=== PATIENT | male | born 1945 | race Caucasian/White ===

== ENCOUNTER 2016-07-10 10:16 | Day surgery (SDC) | payer MEDICARE, BC, OTHER ==
--- NOTE | ~2016-07-10 | EGD ---
EGD REPORT [facility] [address] [place] [address] NAME: PANCHO BEEBE : [birth year] STATUS : REG [facility]#: [id number] AGE: 70 ADM/REG DATE : 07/10/16 MR#: [id number] REPORT SERV DATE: 07/10/16 DICTATED BY: SONIA FRANCO DATE: 07/10/16 REPORT STATUS : Draft TRANSCRIBED BY: [employer] DATE: 07/10/16 [facility] Patient Name: Pancho Beebe Date of : 1945 Attending MD: SONIA FRANCO, Procedure Date No Time: 07/10/2016 Procedure: Colonoscopy Indications: High risk colon cancer surveillance: Personal history of colonic polyps Referring MD: JENNIFER MATA Medicines: Monitored Anesthesia Care Complications: No immediate complications. Estimated blood loss: None. Procedure: Pre-Anesthesia Assessment: - ASA Grade Assessment: III - A patient with severe systemic disease. After I obtained informed consent, the scope was passed under direct vision. Throughout the procedure, the patient's blood pressure, pulse, and oxygen saturations were monitored continuously. The CF [id number] was introduced through the anus with the intention of advancing to the cecum. The scope was advanced to the transverse colon before the procedure was aborted. Medications were given. The colonoscopy was performed without difficulty. The patient tolerated the procedure well. The quality of the bowel preparation was inadequate. Findings: The perianal and digital rectal examinations were normal. A large amount of semi-solid solid stool was found in the entire colon, precluding visualization. Impression: - Preparation of the colon was inadequate. - Stool in the entire examined colon. Recommendation: - Patient has a contact number available for emergencies. The signs and symptoms of potential delayed complications were discussed with the patient. Return to normal activities tomorrow. Written discharge instructions were provided to the patient. - Return to previous diet. - Continue present medications. - Repeat colonoscopy because the bowel preparation was suboptimal. EGD REPORT [facility] [address] [place] [address] [place]. [address] NAME: PANCHO BEEBE : [birth year] STATUS : REG [facility]#: [id number] AGE: 70 ADM/REG DATE : 07/10/16 MR#: [id number] REPORT SERV DATE: 07/10/16 DICTATED BY: SONIA FRANCO DATE: 07/10/16 REPORT STATUS : Draft TRANSCRIBED BY: [employer] DATE: 07/10/16 Procedure Code(s): --- Professional --- 42507, 53, Colonoscopy, flexible, proximal to splenic flexure; diagnostic, with or without collection of specimen(s) by brushing or washing, with or without colon decompression (separate procedure) Diagnosis Code(s): --- Professional --- Z86.010, Personal history of colonic polyps CPT copyright 2013 [employer]. All rights reserved. The codes documented in this report are preliminary and upon double end production grinder review may be revised to meet current compliance requirements. SONIA FRANCO, 07/10/2016 11:49 AM Number of Addenda: 0 Note Initiated On: 07/10/2016 10:31 AM Scope Withdrawal Time 0 hours 0 minutes 0 seconds [address] [facility] [place] [address]
[~2016-07-10 10:16] MED LIST: ASABAYER PO; CAT1 PO; COREG25 PO; EFFEXOR XR150 MG PO; FLOMAX4 PO; GLUCOPHAGE1000 MG PO; GLUCPH PO; MINIPRESS 1 MG C1 MG PO; MULTI-VIT HP PO; OTC STOOL SOFTENER PO; PROAIR HFA INH; REQUIP1 PO; TOPAMAX25 PO; ZOCOR40 PO
[2016-11-13] MEDS ORDERED: ASABAYER PO (20:18)
[2016-11-13] MEDS ORDERED: MULTIVIT/MIN PO (20:18)
[2016-11-13] MEDS ORDERED: VITC500 PO (20:19)
[2016-11-13] MEDS ORDERED: FISH OIL 500 MG PO (20:19)
[2016-11-13] MEDS ORDERED: TOPAMAX50 MG PO (20:20)
[2016-11-13] MEDS ORDERED: NORCO1 TAB PO (20:21)
[2016-11-13] MEDS ORDERED: ZOCOR40 PO (20:21)
[2016-11-13] MEDS ORDERED: HALF81 PO (20:22)
[2016-11-13] MEDS ORDERED: VASOTEC5 PO (20:23)
[2016-11-13] MEDS ORDERED: COREG3 PO (20:23)
[2016-11-13] MEDS ORDERED: PROSCAR5 PO (20:23)
[2016-11-13] MEDS ORDERED: V5 PO ×2 (20:24→20:25)
[2016-11-13] MEDS ORDERED: REQUIP1 PO (20:25)
[2016-11-13] MEDS ORDERED: BEN25 PO (20:26)
[2016-11-13] MEDS ORDERED: PROAIR HFA INH (20:26)
[2016-11-13] MEDS ORDERED: VITAMIN D31000 UNIT PO (20:26)
[2016-11-13] MEDS ORDERED: WELL75 PO (20:27)
[2016-11-13] MEDS ORDERED: FENTANYL PATCH (20:29)
[2016-12-14] MEDS ORDERED: ELIQUIS 5 MG TAB5 MG PO (09:26)
[2016-12-14] MEDS ORDERED: FISH-EPA1000 MG PO (09:27)
[2016-12-14] MEDS ORDERED: EX-LAX PO (09:27)
[2016-12-14] MEDS ORDERED: STOOL SOFTEN240 MG PO (09:28)
[2016-12-14] MEDS ORDERED: POTASSIUM GLUCO99 MG PO (09:28)
[2016-12-14] MEDS ORDERED: FLOMAX4 PO (09:28)
[2016-12-14] MEDS ORDERED: TOPXL25 PO (09:29)
[2016-12-14] MEDS ORDERED: TOPAMAX25 PO (09:29)
[2016-12-17] MEDS ORDERED: IRON PO (12:04)
[2017-01-10] MEDS ORDERED: FERROUS SULF325 M1 PO (11:06)
[2017-01-11] MEDS ORDERED: IMDUR30 PO (07:15)
[2017-01-11] MEDS ORDERED: LOVAZA1 GM PO (07:16)
[2017-01-11] MEDS ORDERED: VITAMIN B-625 MG PO (07:17)
[2017-01-11] MEDS ORDERED: VITAMIN B-121000 MC1 SL (07:17)
[2017-01-11] MEDS ORDERED: MELATONIN5 M1 PO (07:18)
[2017-01-11] MEDS ORDERED: CO Q-10100 MG PO (07:18)
[2017-01-11] MEDS ORDERED: COCONUT OIL (07:34)
== END 2016-07-10 23:59 | disposition home or self-care (01) ==
LOC: DMU 10:16
PROVIDERS: Internal Medicine Gastroenterology
PROC: 0DJD8ZZ Inspection of Lower Intestinal Tract, Via Natural or Artificial Opening Endoscopic (ICD-10-PCS; principal; 2016-07-10 11:00)
DX: Z12.11 Encounter for screening for malignant neoplasm of colon (principal); Z86.010 Personal history of colon polyps; I10 Essential (primary) hypertension; E78.00 Pure hypercholesterolemia, unspecified; G47.33 Obstructive sleep apnea (adult) (pediatric); E11.9 Type 2 diabetes mellitus without complications; N40.0 Benign prostatic hyperplasia without lower urinary tract symptoms
CPT/HCPCS: 82962

== ENCOUNTER 2016-08-20 07:30 | Day surgery (SDC) | payer MEDICARE, BC, OTHER ==
--- NOTE | ~2016-08-20 | EGD ---
EGD REPORT [facility] [address] [address] NAME: PANCHO BEEBE : [birth year] STATUS : REG [facility]#: [id number] AGE: 70 ADM/REG DATE : 08/20/16 MR#: [id number] REPORT SERV DATE: 08/20/16 DICTATED BY: SONIA FRANCO DATE: 08/20/16 REPORT STATUS : Draft TRANSCRIBED BY: [employer] DATE: 08/20/16 [facility] Patient Name: Pancho Beebe Date of : 1945 Attending MD: SONIA FRANCO, Procedure Date No Time: 08/20/2016 Procedure: Colonoscopy Indications: High risk colon cancer surveillance: Personal history of colonic polyps Medicines: Monitored Anesthesia Care Complications: No immediate complications. Estimated blood loss: None. Procedure: Pre-Anesthesia Assessment: - ASA Grade Assessment: III - A patient with severe systemic disease. After I obtained informed consent, the scope was passed under direct vision. Throughout the procedure, the patient's blood pressure, pulse, and oxygen saturations were monitored continuously. The CF [id number] was introduced through the anus and advanced to the cecum, identified by appendiceal orifice and ileocecal valve. The colonoscopy was performed without difficulty. The patient tolerated the procedure well. The quality of the bowel preparation was good. Findings: The perianal and digital rectal examinations were normal. Five sessile polyps were found in the transverse colon. The polyps were 2 to 3 mm in size. These polyps were removed with a cold biopsy forceps. Resection and retrieval were complete. Verification of patient identification for the specimen was done. Estimated blood loss was minimal. A few small-mouthed diverticula were found in the sigmoid colon. Internal hemorrhoids were found during retroflexion and were Grade I (internal hemorrhoids that do not prolapse). The exam was otherwise without abnormality on direct and retroflexion views. Impression: - Five 2 to 3 mm polyps in the transverse colon. Resected and retrieved. - Diverticulosis in the sigmoid colon. - Internal hemorrhoids. - The examination was otherwise normal on direct and retroflexion views. Recommendation: - Patient has a contact number available for EGD REPORT [address] [address] NAME: PANCHO BEEBE : [birth year] STATUS : REG [facility] PAT#: [id number] AGE: 70 ADM/REG DATE : 08/20/16 MR#: [id number] REPORT SERV DATE: 08/20/16 DICTATED BY: SONIA FRANCO DATE: 08/20/16 REPORT STATUS : Draft TRANSCRIBED BY: [employer] DATE: 08/20/16 emergencies. The signs and symptoms of potential delayed complications were discussed with the patient. Return to normal activities tomorrow. Written discharge instructions were provided to the patient. - Return to previous diet. - Continue present medications. - Await pathology results. - Repeat colonoscopy for surveillance based on pathology results. Procedure Code(s): --- Professional --- 16116, Colonoscopy, flexible, proximal to splenic flexure; with biopsy, single or multiple Diagnosis Code(s): --- Professional --- D12.3, Benign neoplasm of transverse colon K64.0, First degree hemorrhoids K57.30, Diverticulosis of large intestine without perforation or abscess without bleeding Z86.010, Personal history of colonic polyps CPT copyright 2013 [employer]. All rights reserved. The codes documented in this report are preliminary and upon pumper gager review may be revised to meet current compliance requirements. SONIA FRANCO, 08/20/2016 9:18 AM Number of Addenda: 0 Note Initiated On: 08/20/2016 8:58 AM Scope Withdrawal Time 0 hours 12 minutes 44 seconds
[2016-11-13] MEDS ORDERED: MULTIVIT/MIN PO (20:18)
[2016-11-13] MEDS ORDERED: ASABAYER PO (20:18)
[2016-11-13] MEDS ORDERED: VITC500 PO (20:19)
[2016-11-13] MEDS ORDERED: FISH OIL 500 MG PO (20:19)
[2016-11-13] MEDS ORDERED: TOPAMAX50 MG PO (20:20)
[2016-11-13] MEDS ORDERED: NORCO1 TAB PO (20:21)
[2016-11-13] MEDS ORDERED: ZOCOR40 PO (20:21)
[2016-11-13] MEDS ORDERED: HALF81 PO (20:22)
[2016-11-13] MEDS ORDERED: COREG3 PO (20:23)
[2016-11-13] MEDS ORDERED: VASOTEC5 PO (20:23)
[2016-11-13] MEDS ORDERED: PROSCAR5 PO (20:23)
[2016-11-13] MEDS ORDERED: V5 PO ×2 (20:24→20:25)
[2016-11-13] MEDS ORDERED: REQUIP1 PO (20:25)
[2016-11-13] MEDS ORDERED: PROAIR HFA INH (20:26)
[2016-11-13] MEDS ORDERED: VITAMIN D31000 UNIT PO (20:26)
[2016-11-13] MEDS ORDERED: BEN25 PO (20:26)
[2016-11-13] MEDS ORDERED: WELL75 PO (20:27)
[2016-11-13] MEDS ORDERED: FENTANYL PATCH (20:29)
[2016-12-14] MEDS ORDERED: ELIQUIS 5 MG TAB5 MG PO (09:26)
[2016-12-14] MEDS ORDERED: FISH-EPA1000 MG PO (09:27)
[2016-12-14] MEDS ORDERED: EX-LAX PO (09:27)
[2016-12-14] MEDS ORDERED: STOOL SOFTEN240 MG PO (09:28)
[2016-12-14] MEDS ORDERED: FLOMAX4 PO (09:28)
[2016-12-14] MEDS ORDERED: POTASSIUM GLUCO99 MG PO (09:28)
[2016-12-14] MEDS ORDERED: TOPXL25 PO (09:29)
[2016-12-14] MEDS ORDERED: TOPAMAX25 PO (09:29)
[2016-12-17] MEDS ORDERED: IRON PO (12:04)
[2017-01-10] MEDS ORDERED: FERROUS SULF325 M1 PO (11:06)
[2017-01-11] MEDS ORDERED: IMDUR30 PO (07:15)
[2017-01-11] MEDS ORDERED: LOVAZA1 GM PO (07:16)
[2017-01-11] MEDS ORDERED: VITAMIN B-121000 MC1 SL (07:17)
[2017-01-11] MEDS ORDERED: VITAMIN B-625 MG PO (07:17)
[2017-01-11] MEDS ORDERED: CO Q-10100 MG PO (07:18)
[2017-01-11] MEDS ORDERED: MELATONIN5 M1 PO (07:18)
[2017-01-11] MEDS ORDERED: COCONUT OIL (07:34)
== END 2016-08-20 23:59 | disposition home or self-care (01) ==
LOC: DMU 07:30
PROVIDERS: Internal Medicine Gastroenterology
PROC: 0DBL8ZX Excision of Transverse Colon, Via Natural or Artificial Opening Endoscopic, Diagnostic (ICD-10-PCS; principal; 2016-08-20 09:00)
DX: Z12.11 Encounter for screening for malignant neoplasm of colon (principal); D12.3 Benign neoplasm of transverse colon; K64.0 First degree hemorrhoids; K57.30 Diverticulosis of large intestine without perforation or abscess without bleeding; I10 Essential (primary) hypertension; E11.9 Type 2 diabetes mellitus without complications; F41.9 Anxiety disorder, unspecified; J44.9 Chronic obstructive pulmonary disease, unspecified; G47.33 Obstructive sleep apnea (adult) (pediatric); Z86.73 Personal history of transient ischemic attack (TIA), and cerebral infarction without residual deficits; F32.9 Major depressive disorder, single episode, unspecified; Z79.82 Long term (current) use of aspirin; Z86.010 Personal history of colon polyps; Z79.899 Other long term (current) drug therapy; Z98.49 Cataract extraction status, unspecified eye; Z98.890 Other specified postprocedural states
CPT/HCPCS: 82962; 88305

== ENCOUNTER 2016-10-16 21:18 | Inpatient (IN) | payer MEDICARE, BC, OTHER ==
--- NOTE | ~2016-10-16 | HP ---
History And Physical [facility] [id number] [place]. [address] NAME: MAYE FARIAS : [birth year] STATUS : ADM Will PAT#: [id number] AGE: 70 ADM/REG DATE : 10/16/16 MR#: [id number] REPORT SERV DATE: 10/17/16 DICTATED BY: MAGDA YEBOAH DATE: 10/16/16 REPORT STATUS : Draft TRANSCRIBED BY: MODL DATE: 10/16/16 DATE OF ADMISSION: 10/16/2016 CHIEF COMPLAINT: Syncope, low blood pressure, direct admission/transfer from outside hospital facility. HISTORY OF PRESENT ILLNESS: Obtained from the patient, the patient's family, and medical records and reports sent over with the patient from outside hospital facility. Also attached were medical records from the patient's primary care provider made available to [facility] in [place] by his primary care provider. According to the information available, the patient is a pleasant 70-year-old white man with history of hypertension; diabetes type 2, not using insulin; hypercholesterolemia; chronic lower back pain; anxiety/posttraumatic stress disorder, who has been evaluated routinely today by his primary care provider. The patient comes to his primary care provider in [place], [place], Dr. Ion Roa, for followup and refill of his chronic lower back pain medication. The patient was noticed today to have low blood pressure with systolic blood pressure 78/55. Even though the patient was not quite symptomatic, he complains of being weak and standing up becomes lightheaded and dizzy. In retrospect, the patient has told his primary care provider that he is having episodes of lightheadedness, stumbling, and falling, "near passing out" that has been going on for the last several months. Because of the above findings with blood pressure being quite significantly low, the patient was referred to [facility] in [place], [place]. The patient has arrived there by private vehicle in the afternoon on 10/16/2016. Upon initial evaluation, the patient was noticed to still be hypotensive with systolic blood pressure 85/55, pulse 69 with no other complaints besides the above mentioned symptoms. The patient received IV bolus normal saline with improvement of his symptoms and blood pressure. At the time of his transfer to our medical center from [facility], the patient's blood pressure was 129/74. Further investigation at [facility] emergency room department revealed creatinine of 1.72 (normal less than 1.24), and because of these above symptoms and findings, the patient was referred to our Hospitalist Service as a direct admission for further management and evaluation. Other tests including CT scan of the head/brain, chest x-ray, EKG were unrevealing and overall benign/within normal limits. Upon arrival at [facility], the patient is an asymptomatic, lying comfortably in bed. Denies chest pain. Denies palpitations. Denies diaphoresis. Denies headaches. Denies neck pain or neck stiffness. His only complaint relates to his chronic lower back pain, for which he takes his Lortab and complaining of being hungry. In reviewing his medication list with the patient, looks like some of the medications have been prescribed several times a day with increased dose, the patient being unaware of exactly timing of taking the medications or dosages. For example, the patient has prescribed Effexor XR twice a day, which he has been taking twice a day for a couple months now as prescribed; Valium 5 mg three times a day; prazosin 1 mg to take one or two capsules by mouth q.h.s.? The patient states that he has been evaluated in [place], where he used to live over the last 50 years by his tumbler machine operator helper and had significant testing done at that time. PAST MEDICAL HISTORY: Significant for hypertension, significant for reportedly atrial History And Physical [address] [address] NAME: MAYE FARIAS : 41 STATUS : ADM Will PAT#: [id number] AGE: 70 ADM/REG DATE : 10/16/16 MR#: [id number] REPORT SERV DATE: 10/17/16 DICTATED BY: MAGDA YEBOAH DATE: 10/16/16 REPORT STATUS : Draft TRANSCRIBED BY: CADEN DATE: 10/16/16 fibrillation, the patient states that his tumbler machine operator helper in [place] has done several tests and he was on "some medications" in the past, but was taken out and presently, he is only on aspirin 325 mg daily for atrial fibrillation as per the patient; history of diabetes type 2, not insulin dependent, using metformin with relatively well controlled according to testing available from his primary care provider; history of prior vertigo "inner ear" as per patient; history of migraine headaches, for which he takes Topamax; history of colon polyps just recently removed by Dr. Gant, GI specialist; history of depression and anxiety and posttraumatic stress disorder; history of restless leg syndrome; history of chronic lower back pain syndrome with degenerative disk disease; history of reported BPH; history of high cholesterol; dyslipidemia; history of reported CVA with prior TIAs; history of asthma. PAST SURGICAL HISTORY: Significant for back surgery, lower back x4 as per patient; bilateral cataract surgeries, several colonoscopies; and "stomach stapling" in 1973. ALLERGIES: NO KNOWN DRUG ALLERGIES. MEDICATIONS AT HOME: According to the list provided by his primary care provider, the patient is supposed to take Coreg 25 mg p.o. b.i.d.; Lortab 10 mg/325 one p.o. q.i.d. p.r.n. pain; metformin 500 mg p.o. tablet, the patient takes one tablet in the morning with breakfast and two tablets in the evening with dinner; Mobic 7.5 mg p.o. daily; prazosin 1 mg capsule take one to two capsules by mouth q.h.s. (?); ProAir HFA MDI two puffs q.4 hours p.r.n. shortness of breath; Requip 0.5 mg p.o. t.i.d. (?); Zocor 40 mg p.o. q.h.s.; Flomax extended release 0.4 mg p.o. q.h.s.; Topamax 25 mg take one tablet one or two times daily; Valium 5 mg p.o. t.i.d. p.r.n. vertigo; Effexor XR 150 mg p.o. b.i.d.; aspirin 325 mg p.o. daily; and triamcinolone 0.5% cream apply topically three times a day in a thin layer. FAMILY HISTORY: Significant for coronary artery disease and hypertension. SOCIAL HISTORY: . Retired. 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 Apparently, he had lived in [place] until four months ago with he relocated in the area in [place], [place]. He denies tobacco abuse. He has never smoked. He used to drink alcohol rather heavily, but he quit for the last four or six years. Denies illicit recreational drug abuse. He does use caffeinated drinks as tea and sodas, overall more than reportedly six cups a day. REVIEW OF SYSTEMS: As per H and P, otherwise negative in all review of systems. Please note that the comprehensive review of system was obtained and pertinent positives were including in the H and P. PHYSICAL EXAMINATION: GENERAL: Pleasant, cooperative, in no acute distress. VITAL SIGNS: Upon arrival to the primary care provider's office, blood pressure was 78/55, pulse 59, temperature 36.8, oxygen saturation 96% in room air. HEENT: With bilateral cataracts. Extraocular movements intact. Throat, mild erythema. No exudate. NECK: Supple. No JVD. No bruits. No thyromegaly. No lymph nodes. History And Physical [address] [place]. [address] NAME: MAYE FARIAS : 41 STATUS : ADM Will PAT#: [id number] AGE: 70 ADM/REG DATE : 10/16/16 MR#: [id number] REPORT SERV DATE: 10/17/16 DICTATED BY: MAGDA YEBOAH DATE: 10/16/16 REPORT STATUS : Draft TRANSCRIBED BY: CADEN DATE: 10/16/16 LUNGS: Bilateral air entry with few dry bibasilar crackles. No wheezing. No rales. HEART: Positive S1, S2. Regular rate and rhythm. Occasional PVCs. Positive mitral regurgitation murmur at the apex. PMI not displaced by palpation. No rub, no gallop. ABDOMEN: Positive bowel sounds. Soft, obese, nontender. No guarding, no hepatosplenomegaly. EXTREMITIES: Decreased range of motion with osteoarthritic changes. No clubbing, no cyanosis, no edema. NEUROLOGIC: Alert and oriented x3. Grossly nonfocal. Cranial nerves 2 through 12 grossly intact. Motor strength 5/5 symmetrical bilateral. Deep tendon reflexes 2/2 symmetrical bilateral. BACK: With decreased range of motion, but no other focal localized tenderness. No CVA tenderness. SKIN: No bruises, no rashes, no lacerations. SIGNIFICANT LABORATORY DATA: There are no laboratory data available, as the patient is a direct admission from outside hospital facility. Review of the medical records sent over with the patient from [facility] showed white cell count 10.1, hemoglobin 13.4, platelet count 196. Sodium 136, potassium 4, chloride 96, bicarb 24, BUN 19, creatinine 1.72 (upper level of normal 1.24). Liver function tests within normal limits. Troponin I less than 0.3, which is within the normal limits. BNP measured as "proBNP 541" with normal range 0 to 899. Chest x-ray by report shows cardiomegaly, but otherwise, no acute infiltrate. Normal chest. CT scan of the head/brain by preliminary report from [facility] without contrast showed "negative exam." EKG (personal reading) showed normal sinus rhythm at 63 beats per minute with normal axis and intervals, occasional PAC. No acute ST elevation. No prior EKG available for comparison. Also of note, there is no urinalysis and reports from primary care provider showed lipid profile with cholesterol 144, triglycerides 201, a hemoglobin A1c of 5.9%, LDL cholesterol 66, a PSA was 0.5 which is within normal limits. ASSESSMENT AND PLAN AND PROBLEM LIST: The patient is a pleasant 70-year-old man sent over from [facility]/outside hospital facility emergency room for hypotension with orthostatic symptoms, near syncopal episode, and possible acute kidney injury. IMPRESSION: 1. Cardiovascular with hypotension and orthostatic hypotension with near syncopal episode possible secondary to medication. It seems the patient has some confusion regarding his medications that he takes at home with apparent prescribed Effexor XR for example b.i.d. with taking alpha-1 anthony such as prazosin 1 mg at his decision one or two capsules at night as well as taking Requip three times a day, Valium three times a day, might have a degree of dehydration as well contributing to his symptoms. We are going to provide adequate IV hydration, decrease Coreg to 12.5 mg with holding parameters depending on his blood pressure. We are going to hold prazosin alpha anthony for now. We are going to check a 2D echo and carotid arterial ultrasound. Continue to monitor for any signs of arrhythmia with his reported history of atrial fibrillation. The patient does not have any records apparently from his doctors in [place] including from his prior cardiology, but further attempts would be made in the morning by primary care team. Continue aspirin 325 mg p.o. daily. We are going to check urinalysis to rule History And Physical [address] [address] NAME: MAYE FARIAS : 41 STATUS : ADM Will PAT#: [id number] AGE: 70 ADM/REG DATE : 10/16/16 MR#: [id number] REPORT SERV DATE: 10/17/16 DICTATED BY: MAGDA YEBOAH DATE: 10/16/16 REPORT STATUS : Draft TRANSCRIBED BY: CADEN DATE: 10/16/16 out any signs of infection as well as urine drug screen for completeness of his workup. 2. Neurologic and psychiatric problem with:. a. Anxiety and posttraumatic stress disorder. We are going to continue Effexor at 150 mg p.o. daily and provide emotional support. b. Restless leg syndrome. We are going to use Requip at bedtime only for now. c. Chronic back pain syndrome. We are going to continue his chronic back pain medication. d. Reported history of cerebrovascular accidents and transient ischemic attacks with apparent no reports of cerebrovascular disease on the preliminary report from [facility] by CT scan of the head. We are going to continue aspirin for now and evaluate his bilateral carotid arterial Doppler ultrasound. e. History of migraine headaches, for which the patient takes Topamax p.r.n. once a day, reportedly only once a month at most he had to use Topamax. f. Reported history of vertigo, for which the patient takes "Valium." We are going to make it Valium benzodiazepine only p.r.n. and decreased dose as needed. 3. Endocrinologic problem with:. a. Diabetes type 2, not insulin dependent with complications. We are going to continue to monitor blood sugar level and provide diabetic education. We are going to hold metformin for now. b. Hyperlipidemia, mixed type. We are going to continue Zocor. Provide low cholesterol diet. 4. Acute kidney injury with increased creatinine by laboratory data from [facility]. We are going to provide IV hydration. Avoid nephrotoxic agents, especially hypotension. We are going to continue Flomax at bedtime as per previous schedule. We are going to obtain urinalysis. Monitor for any signs of urinary bladder retention. 5. Reported asthma, mild, intermittent, well controlled presently. We are going to continue p.r.n. albuterol nebulizer. 6. Osteoarthritis, deconditioning with degenerative disk disease and chronic back pain. We are going to continue his pain medications per home dose and schedule, and obtain a Physical Therapy evaluation assessing also for risk of falling. 7. History of colon polyps, recently removed by Dr. Gant, GI specialist. PROGNOSIS: Moderately good for this admission. Discussed with the patient. Questions were answered in full. Please note, the patient is a full code at this moment as discussed with the patient at bedside. RF/CADEN Magda Yeboah M.D. / [id number] CC: History And Physical [address] [address] NAME: MAYE FARIAS : 41 STATUS : ADM Will PAT#: [id number] AGE: 70 ADM/REG DATE : 10/16/16 MR#: [id number] REPORT SERV DATE: 10/17/16 DICTATED BY: MAGDA YEBOAH ION DATE: 10/16/16 REPORT STATUS : Draft TRANSCRIBED BY: CADEN DATE: 10/16/16 Babatunde Bailey
--- NOTE | ~2016-10-16 | DS ---
Discharge Summary [facility] [address] [place]. [address] NAME: MAYE FARIAS : 41 STATUS : DIS IN PAT#: [id number] AGE: 70 ADM/REG DATE : 10/16/16 MR#: [id number] REPORT SERV DATE: 10/19/16 DICTATED BY: MELISSA LYON DATE: 10/18/16 REPORT STATUS : Draft TRANSCRIBED BY: MODL DATE: 10/18/16 ADMISSION DATE: 10/16/2016 DISCHARGE DATE: 10/18/2016 PRINCIPAL DIAGNOSIS: Severe orthostatic hypotension with autonomic insufficiency exacerbated by medication side effects. SECONDARY DIAGNOSES: 1. History of hypertension. 2. Benign prostatic hypertrophy. 3. Type 2 diabetes, in remission following drastic loss of weight. 4. Syncope. 5. Chronic pain syndrome/low back pain. 6. Acute kidney injury. HISTORY OF PRESENT ILLNESS: Please see Dr. Marin's dictation on 10/16/2016. HOSPITAL COURSE: The patient was admitted with syncope. The patient had a normal EKG, normal telemetry, and by history is sounded orthostatic, in fact his blood pressure was found to drop 80 points when standing from 160 down to 80s systolic. The patient has some mild acute kidney injury with hypovolemia. He was hydrated with normalization of renal function, but no change in his severe orthostatic gradient. Several medications were discontinued as with orthotic hypertension being major side effects. He was taken off Flomax and told to discard permanently clonidine and prazosin. Carvedilol doses were reduced and he was also put on lower doses of both Valium and the Lortab which he took. Blood pressure remained a significant gradient, positional adjustments were made by elevating the head of the bed 45 degrees and putting him in thigh-high compression stockings. His symptoms had reduced even though he remained orthostatic at about 50 mm mercury gradient, blood pressure was still high, when lying down it was felt best to not lay supine, but to stay at a 45 degrees angle. A wedge was recommended to thigh-high Edwin stockings, and adjust his medications he would take Vasotec 5 mg q.h.s. only due to supine hypertension. He was taken off metformin as the A1c was 5.1 and no hyperglycemia was seen following his weight loss. He was also taken off the other medicines as mentioned, while carvedilol was reduced to 6.25 mg b.i.d. he will follow up with Dr. Ion Roa in one to two weeks. ACTIVITY: As tolerated. DIET: As tolerated. Greater than 30 minutes were spent in care of this patient on discharge planning on discharge day. DICTATED BY: Melissa Lyon M.D. Discharge Summary [address] [address] NAME: MAYE FARIAS : 41 STATUS : DIS IN PAT#: [id number] AGE: 70 ADM/REG DATE : 10/16/16 MR#: [id number] REPORT SERV DATE: 10/19/16 DICTATED BY: MELISSA LYON DATE: 10/18/16 REPORT STATUS : Draft TRANSCRIBED BY: CADEN DATE: 10/18/16 MICKIE/CADEN Melissa Lyon M.D. / [id number] CC: Melissa Lyon M.D.
[2016-10-16 23:09] LABS: BASOPHILS 0.3 %; BASOPHILS ABSOLUTE 0.03 10/3/uL (0.0-0.16); EOSINOPHILS 11.7 %; EOSINOPHILS ABSOLUTE 1.01 10/3/uL (0.0-0.53); HEMATOCRIT 41.8 % (40.0-51.0); IMMATURE GRANULOCYTES 0.3 %; IMMATURE GRANULOCYTES ABSOLUTE 0.03 10/3/uL (0.0-0.11); LYMPHOCYTES 29.8 %; LYMPHOCYTES ABSOLUTE 2.57 10/3/uL (0.67-4.30); MEAN CORPUS HGB CONC 33.5 g/dL (32.0-36.0); MEAN CORPUSCULAR HEMOGLOB 30.5 pg (26.0-34.0); MEAN CORPUSCULAR VOLUME 91.1 fL (80-100); MEAN PLATELET VOLUME 10.7 fL (9.2-13.0); MONOCYTES 8.9 %; MONOCYTES ABSOLUTE 0.77 10/3/uL (0.21-1.20); NEUTROPHILS ABSOLUTE 4.22 10/3/uL (2.02-8.40); PLATELET COUNT 190 10/3/uL (150-400); RBC DISTRIBUTION WIDTH 14.1 % (12.0-16.0); RED CELL COUNT 4.59 10/6/uL (4.7-6.1); WHITE BLOOD CELLS 8.6 10/3/uL (4.5-10.5)
[2016-10-16 23:10] LABS: MANUAL DIFF NO %
[2016-10-16 23:16] LABS: INTERNATIONAL NORMAL RATI 1.2 UNITS (-); PROTIME (NOT ORD) 14.7 SEC (12.0-14.5)
[2016-10-16 23:19] LABS: PARTIAL THROMBO TIME 22.4 SEC (22.5-37.2)
[2016-10-16] MEDS ORDERED: NORCO1 TAB PO (23:43)
[2016-10-16] MEDS ORDERED: CAT1 PO (23:44)
[2016-10-16] MEDS ORDERED: EFFEXOR XR150 MG PO (23:44)
[2016-10-16] MEDS ORDERED: GLUCPH PO (23:45)
[2016-10-16] MEDS ORDERED: ASABAYER PO (23:45)
[2016-10-16] MEDS ORDERED: MULTIVIT/MIN PO (23:45)
[2016-10-16] MEDS ORDERED: COREG3 PO (23:45)
[2016-10-16] MEDS ORDERED: VITAMIN D1000 UNI1 PO (23:45)
[2016-10-16] MEDS ORDERED: MINIPRESS 1 MG C1 MG PO (23:46)
[2016-10-16] MEDS ORDERED: GLUCOPHAGE1000 MG PO (23:46)
[2016-10-16] MEDS ORDERED: PROAIR HFA INH (23:47)
[2016-10-16] MEDS ORDERED: REQUIP5 PO (23:47)
[2016-10-16] MEDS ORDERED: ZOCOR40 PO (23:47)
[2016-10-16] MEDS ORDERED: FLOMAX4 PO (23:47)
[2016-10-16] MEDS ORDERED: VALIUM10 MG PO (23:48)
[2016-10-16] MEDS ORDERED: V5 PO (23:48)
[2016-10-16] MEDS ORDERED: TOPAMAX25 PO (23:48)
[2016-10-16 23:59] LABS: A/G RATIO 1.2 (0.7-1.9); ALBUMIN 4.4 G/DL (3.5-5.0); ALKALINE PHOSPHATASE 76 U/L (45-117); BUN (BLOOD UREA NITROGEN) 17 MG/DL (6-23); CALCIUM, SERUM 9.5 MG/DL (8.5-10.4); CHLORIDE, SERUM 102 MMOL/L (96-112); CO2 (CARBON DIOXIDE) 28 MMOL/L (24-34); CPK 71 U/L (0-200); CREATININE 1.43 MG/DL (0.70-1.30); GFR AFRICAN AMERICAN 56 ML/MIN (>=60); GFR NON AFRICAN AMERICAN 49 ML/MIN (>=60); GLOBULIN 3.6 G/DL (2.5-4.1); GLUCOSE, SERUM 115 MG/DL (60-99); PHOSPHORUS, SERUM 3.7 MG/DL (2.5-4.5); POTASSIUM, SERUM 4.3 MMOL/L (3.5-5.3); SGOT(AST) 16 U/L (5-40); SGPT(ALT) 20 U/L (5-65); SODIUM, SERUM 137 MMOL/L (135-148); TOTAL BILIRUBIN 0.6 MG/DL (0-1.2); TROPONIN I <0.02 NG/ML (<0.05)
[2016-10-17 00:04] LABS: CK-MB 1.5 NG/ML; FOLATE 51.5 NG/ML (>5.2)
[2016-10-17 00:33] LABS: PROCALCITONIN <0.05 ng/mL (<0.5)
[2016-10-17 06:51] LABS: BASOPHILS 0.3 %; BASOPHILS ABSOLUTE 0.03 10/3/uL (0.0-0.16); EOSINOPHILS 10.5 %; EOSINOPHILS ABSOLUTE 0.94 10/3/uL (0.0-0.53); HEMATOCRIT 40.2 % (40.0-51.0); HEMOGLOBIN 13.4 g/dL (13.6-17.8); IMMATURE GRANULOCYTES 0.2 %; IMMATURE GRANULOCYTES ABSOLUTE 0.02 10/3/uL (0.0-0.11); LYMPHOCYTES 34.1 %; LYMPHOCYTES ABSOLUTE 3.04 10/3/uL (0.67-4.30); MEAN CORPUS HGB CONC 33.3 g/dL (32.0-36.0); MEAN CORPUSCULAR HEMOGLOB 30.3 pg (26.0-34.0); MEAN PLATELET VOLUME 10.9 fL (9.2-13.0); MONOCYTES 6.2 %; MONOCYTES ABSOLUTE 0.55 10/3/uL (0.21-1.20); NEUTROPHILS 48.7 %; NEUTROPHILS ABSOLUTE 4.33 10/3/uL (2.02-8.40); PLATELET COUNT 212 10/3/uL (150-400); RBC DISTRIBUTION WIDTH 13.8 % (12.0-16.0); RED CELL COUNT 4.42 10/6/uL (4.7-6.1); WHITE BLOOD CELLS 8.9 10/3/uL (4.5-10.5)
[2016-10-17 06:52] LABS: MANUAL DIFF NO %
[2016-10-17 07:24] LABS: ALBUMIN 3.8 G/DL (3.5-5.0); BUN (BLOOD UREA NITROGEN) 16 MG/DL (6-23); CALCIUM, SERUM 9.1 MG/DL (8.5-10.4); CHLORIDE, SERUM 102 MMOL/L (96-112); CO2 (CARBON DIOXIDE) 29 MMOL/L (24-34); CPK 67 U/L (0-200); CREATININE 1.41 MG/DL (0.70-1.30); GFR AFRICAN AMERICAN 57 ML/MIN (>=60); GFR NON AFRICAN AMERICAN 49 ML/MIN (>=60); GLUCOSE, SERUM 100 MG/DL (60-99); PHOSPHORUS, SERUM 3.8 MG/DL (2.5-4.5); POTASSIUM, SERUM 3.9 MMOL/L (3.5-5.3); SODIUM, SERUM 137 MMOL/L (135-148); TROPONIN I <0.02 NG/ML (<0.05)
[2016-10-17 07:25] LABS: CK-MB 1.6 NG/ML
[2016-10-17 10:06] LABS: ASCORBIC ACID (UR NOT ORDER) NEG (NEG); BILIRUBIN, URINE NEGATIVE (NEG); KETONE, URINE NEGATIVE (NEG); LEUKOCYTE ESTERASE(NOT OR NEG (NEG); WBC (NOT ORDERED) (RFLEX) < 1 (0-5)
[2016-10-17 19:05] LABS: CREATININE, URINE 42.4 MG/DL
[2016-10-18 07:02] LABS: BUN (BLOOD UREA NITROGEN) 13 MG/DL (6-23); CALCIUM, SERUM 8.7 MG/DL (8.5-10.4); CHLORIDE, SERUM 106 MMOL/L (96-112); CO2 (CARBON DIOXIDE) 27 MMOL/L (24-34); CREATININE 1.06 MG/DL (0.70-1.30); GFR AFRICAN AMERICAN 81 ML/MIN (>=60); GFR NON AFRICAN AMERICAN 70 ML/MIN (>=60); GLUCOSE, SERUM 122 MG/DL (60-99); POTASSIUM, SERUM 3.7 MMOL/L (3.5-5.3); SODIUM, SERUM 141 MMOL/L (135-148)
[2016-10-18] MEDS ORDERED: PROSCAR5 PO (15:56)
[2016-10-18] MEDS ORDERED: DURA50 TOP (16:02)
[2016-10-18] MEDS ORDERED: VASOTEC5 PO (16:06)
[2016-11-13] MEDS ORDERED: MULTIVIT/MIN PO (20:18)
[2016-11-13] MEDS ORDERED: ASABAYER PO (20:18)
[2016-11-13] MEDS ORDERED: FISH OIL 500 MG PO (20:19)
[2016-11-13] MEDS ORDERED: VITC500 PO (20:19)
[2016-11-13] MEDS ORDERED: TOPAMAX50 MG PO (20:20)
[2016-11-13] MEDS ORDERED: ZOCOR40 PO (20:21)
[2016-11-13] MEDS ORDERED: NORCO1 TAB PO (20:21)
[2016-11-13] MEDS ORDERED: HALF81 PO (20:22)
[2016-11-13] MEDS ORDERED: PROSCAR5 PO (20:23)
[2016-11-13] MEDS ORDERED: VASOTEC5 PO (20:23)
[2016-11-13] MEDS ORDERED: COREG3 PO (20:23)
[2016-11-13] MEDS ORDERED: V5 PO ×2 (20:24→20:25)
[2016-11-13] MEDS ORDERED: REQUIP1 PO (20:25)
[2016-11-13] MEDS ORDERED: VITAMIN D31000 UNIT PO (20:26)
[2016-11-13] MEDS ORDERED: BEN25 PO (20:26)
[2016-11-13] MEDS ORDERED: PROAIR HFA INH (20:26)
[2016-11-13] MEDS ORDERED: WELL75 PO (20:27)
[2016-11-13] MEDS ORDERED: FENTANYL PATCH (20:29)
[2016-12-14] MEDS ORDERED: ELIQUIS 5 MG TAB5 MG PO (09:26)
[2016-12-14] MEDS ORDERED: FISH-EPA1000 MG PO (09:27)
[2016-12-14] MEDS ORDERED: EX-LAX PO (09:27)
[2016-12-14] MEDS ORDERED: POTASSIUM GLUCO99 MG PO (09:28)
[2016-12-14] MEDS ORDERED: FLOMAX4 PO (09:28)
[2016-12-14] MEDS ORDERED: STOOL SOFTEN240 MG PO (09:28)
[2016-12-14] MEDS ORDERED: TOPXL25 PO (09:29)
[2016-12-14] MEDS ORDERED: TOPAMAX25 PO (09:29)
[2016-12-17] MEDS ORDERED: IRON PO (12:04)
[2017-01-10] MEDS ORDERED: FERROUS SULF325 M1 PO (11:06)
[2017-01-11] MEDS ORDERED: IMDUR30 PO (07:15)
[2017-01-11] MEDS ORDERED: LOVAZA1 GM PO (07:16)
[2017-01-11] MEDS ORDERED: VITAMIN B-625 MG PO (07:17)
[2017-01-11] MEDS ORDERED: VITAMIN B-121000 MC1 SL (07:17)
[2017-01-11] MEDS ORDERED: MELATONIN5 M1 PO (07:18)
[2017-01-11] MEDS ORDERED: CO Q-10100 MG PO (07:18)
[2017-01-11] MEDS ORDERED: COCONUT OIL (07:34)
== END 2016-10-18 18:16 | disposition home or self-care (01) | DRG 312 ==
LOC: 1SO 21:18
PROVIDERS: Internal Medicine
DX: I95.2 Hypotension due to drugs (principal); N17.9 Acute kidney failure, unspecified; I48.91 Unspecified atrial fibrillation; E11.9 Type 2 diabetes mellitus without complications; I10 Essential (primary) hypertension; E78.2 Mixed hyperlipidemia; E86.1 Hypovolemia; F41.9 Anxiety disorder, unspecified; G25.81 Restless legs syndrome; M54.5 Low back pain; J45.909 Unspecified asthma, uncomplicated; G43.909 Migraine, unspecified, not intractable, without status migrainosus; M51.36 Other intervertebral disc degeneration, lumbar region; M47.9 Spondylosis, unspecified; T50.995A Adverse effect of other drugs, medicaments and biological substances, initial encounter; N40.0 Benign prostatic hyperplasia without lower urinary tract symptoms; G89.4 Chronic pain syndrome; F43.10 Post-traumatic stress disorder, unspecified; Z79.82 Long term (current) use of aspirin; Z79.84 Long term (current) use of oral hypoglycemic drugs; Z79.899 Other long term (current) drug therapy; Z86.73 Personal history of transient ischemic attack (TIA), and cerebral infarction without residual deficits; Z86.010 Personal history of colon polyps
CPT/HCPCS: 80048; 80053; 80069; 81001; 82150; 82533; 82550; 82553; 82570; 82607; 82728; 82746; 82962; 83690; 83735; 83880; 84100; 84145; 84300; 84443; 84484; 85025; 85610; 85730; 93005; 97162-GP; A9270-GY; G8978-CH-GP; G8979-CH-GP; G8980-CH-GP